=== PATIENT | female | born 1930 | race Caucasian/White ===

== ENCOUNTER → 2016-09-08 | Outpatient (CLI) | payer MEDICARE, BC, MEDICAID ==
[~2016-09-08] MED LIST: CALCIUM 600 +1 EAC1 PO; ELIQUIS5 MG PO; HALFPRIN81 MG PO; LASIX40 MG PO; LEVOXYL75 MCG PO; RESTASIS1 EACH EYEBOTH; TRAMADOL HCL50 MG PO; TYLENOL ARTHRI650 MG PO
== END | disposition short-term general hospital (02) ==
LOC: CLCARD 10:28 → CLVASC 10:28 → CLCARD 11:49
DX: L03.116 Cellulitis of left lower limb (principal)